=== PATIENT | female | born 1975 | race Caucasian/White ===

== ENCOUNTER 2016-08-27 00:44 | Emergency (ER) | payer OTHER ==
--- NOTE | 2016-08-27 03:10 | ED ORDER SUMMARY ---
..... Patient: SAMUEL AREVALO OrderSheet [facility] VisitID: [id number] [place] [address] 40y, F Registration Date/Time: 08/27/2016 ORDER SHEET Weight: 52.1 kg Allergies: No Known Drug Allergy GENERAL ORDERS: MEDICATION ORDERS: Augmentin PO 875 mg (NOW) (03:09 08/27/2016 Sandi OSPINA) (3:17 TBowfrancois R.N.) Oxycodone-APAP PO 5/325 mg (NOW) (03:09 08/27/2016 Sandi OSPINA) (3:17 TBowfrancois R.N.) IV FLUIDS: ORDER SHEET NOTES: [Electronically signed by Janis Llanos R.N. (03:19 08/27/2016)] [Electronically signed by Braulio Hou MD (14:55 09/03/2016)] [Electronically locked/signed by Janis Llanos R.N. (03:19 08/27/2016)]
--- NOTE | 2016-08-27 03:10 | ED CLINICAL REPORT ---
Clinical Report - Physicians/Mid Levels [facility] [address] [place] [address] 08/27/2016 0:47 Patient: SAMUEL AREVALO Time Seen: 03:02 Aug 27 2016. Arrived- By private vehicle. Historian- patient. CPT: ER phys charges level 3 (#[id number]). HISTORY OF PRESENT ILLNESS Chief Complaint: EARACHE. Is still present. Onset during light activity. Modifying factors. Not worsened by anything. Not relieved by anything. Location- left ear. The pain is described as severe. The patient has had moderate left ear pain. She has had ear drainage and hearing loss. No nasal discharge, sinus pressure, complaint of foreign body in the ear, ear trauma or recent barotrauma. No tinnitus. Similar symptoms previously: As bad. Diagnosis: otitis externa. Recent medical care: Not recently seen/assessed. REVIEW OF SYSTEMS No fever, chills, cough, difficulty breathing or chest pain. No eye discomfort, nausea, vomiting, diarrhea or abdominal pain. No skin rash or enlarged lymph nodes. All systems otherwise negative, except as recorded above. PAST HISTORY Otitis Externa. Diabetes Mellitus. - ADDITIONAL SURGERIES: Eye surg. --02:04 Gorge Schafer . Tonsillectomy. Medications: Insulin Regular Human Injection. Allergies: No Known Drug Allergy. SOCIAL HISTORY Heavy tobacco smoker (cigarette)- 1 pack per day. No alcohol use or drug use. ADDITIONAL NOTES The nursing notes have been reviewed. PHYSICAL EXAM Vital Signs: 08/27/2016 02:03 BP: 119/72. HR: 98. RR: 18. O2 saturation: 99%. Temp: 97.8 F. Pain level now: 5/10. Appearance: Alert. Appears to be in pain. Patient in moderate distress. Nose: Nose normal. Throat: Pharynx normal. Ear (right): There is pain with movement of the auricle, erythema of the external canal, swelling of the external canal and material in the external canal. The tympanic membrane is completely obscured by discharge. No lymphadenopathy. Right ear normal. Normal mastoid. Neck: Normal inspection. Neck supple. CVS: Normal heart rate and rhythm. Heart sounds normal. Respiratory: No respiratory distress. Breath sounds normal. Skin: Skin warm. Normal skin color. No rash. Neuro: Oriented X 3. No motor deficit. PROGRESS AND PROCEDURES Course of Care: percocet 1 po Augmentin 875 mg po Patient is stable. Symptoms better. Patient/family counseled. Disposition: Discharged. Condition: stable. CLINICAL IMPRESSION Acute and recurrent suppurative left otitis media. No perforation of left tympanic membrane. Acute localized left otitis externa. Topical preparation prescribed. Systemic antibiotics prescribed due to coexisting disease and OM. Drainage present. INSTRUCTIONS Do not allow water in ear. Drink plenty of fluids. Warnings: Further evaluation is necessary. GENERAL WARNINGS: Return or contact your physician immediately if your condition worsens or changes unexpectedly, if not improving as expected, or if other problems arise. Your Current Medications: CONTINUE TAKING THE FOLLOWING MEDICATIONS: Insulin Regular Human Injection. Prescription Medications: Augmentin 875 mg: take 1 tablet orally every 12 hours for 7 days. Dispense fourteen (14). No refills. Substitution is permissible. Oxycodone/APAP 5 mg/325 mg: take 1-2 tablets orally every 4 hours as needed for pain. Dispense twenty (20). No refill. Cipro HC otic solution: instill 3 drops into affected ear every 12 hours for 7 days. Dispense one (1) bottle. No refills. Substitution is permissible. Follow-up: Follow up with your doctor in two days. Call for an appointment. Understanding of the discharge instructions verbalized by patient. Discharge instructions reviewed with and understanding was verbalized by industrial relations director. (Electronically signed by Braulio Hou MD 09/03/2016 14:55) Addenda for SAMUEL AREVALO VisitID: [id number] Date: 08/27/2016 08/27/2016 14:08 Patients mother called wanting to change ear drop abx Cipro to another due to cost. Let provider know, provider does not feel safe changing prescription due to the original provider that saw patient did not finish patient documentation and it is unknown what he saw during patient ear assessment. Called patients mother back and informed her to follow up with PCP or to get RX filled. (Electronically signed by Fransisco Bridges R.N. - 08/27/2016 14:08)
--- NOTE | 2016-08-27 03:10 | ED NURSING NOTES ---
Clinical Report - Nurses [facility] [address] [place] [address] 08/27/2016 0:47 [id number] Triage time 02:03. Acuity: LEVEL 4. Chief Complaint: LEFT EAR PAIN. --02:06 Jolene Schafer. 02:03 08/27/16. BP: 119/72. HR: 98. RR: 18. O2 saturation: 99%. Temp: 97.8 F. Pain level now: 09/11. --02:06 Jolene Schafer. Weight: 52.1 kg. Height/Length: 63 inches. BMI: 20.4. --02:06 Jolene Schafer. Medications Insulin Regular Human Injection. --02:04 Gorge Schafer Allergies No Known Drug Allergy. --02:03 Gorge Schafer History Arrived by private vehicle. Historian: patient. Accompanied by family. This started yesterday. She has had a sore throat and a headache. 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 PAST MEDICAL HX: Immunizations: up-to-date. Last normal menstrual period- 1 months ago. SOCIAL HX: Heavy tobacco smoker- less than 1 pack per day. No alcohol use or drug use. No infectious disease exposure. SELF HARM ASSESSMENT: A self harm assessment was performed. The patient answered "no" to the question "Have you recently felt down, depressed, or hopeless?", "Have you noticed less interest or pleasure in doing things?", "Do you have thoughts of harming or killing yourself?", "Are you here because you tried to hurt yourself?", "Have you ever tried to hurt yourself before today?", "Have you recently had thoughts about harming or killing others?" and "Do you have any dangerous items in your possession?". FALL RISK ASSESSMENT: Fall risk assessment completed. No fall risk identified. NUTRITIONAL RISK ASSESSMENT: The nutritional risk assessment revealed no deficiencies. FUNCTIONAL ASSESSMENT: Functional assessment: no impairments noted. LEARNING NEEDS ASSESSMENT: The learning needs assessment revealed no barriers. ABUSE ASSESSMENT: Abuse assessment: The patient was asked "Do you feel safe in your home?". SKIN INTEGRITY ASSESSMENT: Skin integrity risk assessment completed. No skin integrity risk identified. --02:06 Gorge Schafer PROBLEMS: Otitis Externa. Diabetes Mellitus. --02:04 Gorge Schafer ADDITIONAL SURGERIES: Eye surg. --02:04 Gorge Schafer . Tonsillectomy. --02:05 Gorge Schafer Interventions ID band on patient. To treatment room. --02:06 Gorge Schafer PHYSICAL ASSESSMENT Ambulatory to room. GENERAL / NEURO / PSYCH: Alert. Appears in no acute distress. Appears in pain. HEENT: No facial asymmetry noted. Pupils equal, round and reactive to light. EOM intact. Nares within normal limits. Pharynx within normal limits. RESPIRATORY: Respirations not labored. CVS: Capillary refill less than 2 seconds. SKIN: Skin is warm and dry. --02: Gorge Schafer NURSING PROGRESS NOTES Patient identifiers checked. Call light placed in reach. Side rails up x 1. Bed placed in lowest position. Brakes of bed on. --02:07 Gorge Schafer 03:17 08/27/2016 Augmentin (Amoxicillin-Pot Clavulanate) PO 875 mg given. Allergies verified and confirmed 5 rights. --03:17 Gorge Schafer 03:17 08/27/2016 Oxycodone-APAP (Oxycodone-Acetaminophen) PO 5/325 mg Tablets 1 tab given. Allergies verified, confirmed 5 rights and sedative warning given to the patient and patient's family. --03:17 Gorge Schafer DISPOSITION / DISCHARGE Departure time: 03:18. Condition at departure: improved. No learning barriers present. Discharge instructions provided and reviewed with the patient. Reviewed warnings (no water in ear). Reviewed medication(s) side effects, precautions, dosing and course information. Prescription(s) given to the patient. Patient verbalized understanding. Written instructions provided in Italian. No treatment instructions, referrals given to the patient, diet instructions, activity restrictions or note given. No follow up contact number given or stop smoking instructions. The patient was discharged by the physician. She was discharged home and accompanied by spouse. She left the Emergency Department ambulatory and via private vehicle. Spouse driving. FALL RISK ASSESSMENT: Fall risk assessment completed. No fall risk identified. --03:18 Gorge Schafer 03:17 08/27/16. BP: deferred. HR: deferred. RR: deferred. O2 saturation: deferred. Temp: deferred. Pain level now deferred. --03:18 Gorge Schafer Locked/Released at 08/27/2016 3:19 by Gorge Schafer
--- NOTE | 2016-08-27 03:10 | ED CLINICAL REPORT ---
Clinical Report - Physicians/Mid Levels [facility] [address] [place] [address] 08/27/2016 0:47 Patient: SAMUEL AREVALO Time Seen: 03:02 Aug 27 2016. Arrived- By private vehicle. Historian- patient. CPT: ER phys charges level 3 (#[id number]). HISTORY OF PRESENT ILLNESS Chief Complaint: EARACHE. Is still present. Onset during light activity. Modifying factors. Not worsened by anything. Not relieved by anything. Location- left ear. The pain is described as severe. The patient has had moderate left ear pain. She has had ear drainage and hearing loss. No nasal discharge, sinus pressure, complaint of foreign body in the ear, ear trauma or recent barotrauma. No tinnitus. Similar symptoms previously: As bad. Diagnosis: otitis externa. Recent medical care: Not recently seen/assessed. REVIEW OF SYSTEMS No fever, chills, cough, difficulty breathing or chest pain. No eye discomfort, nausea, vomiting, diarrhea or abdominal pain. No skin rash or enlarged lymph nodes. All systems otherwise negative, except as recorded above. PAST HISTORY Otitis Externa. Diabetes Mellitus. - ADDITIONAL SURGERIES: Eye surg. --02:04 Gorge Schafer . Tonsillectomy. Medications: Insulin Regular Human Injection. Allergies: No Known Drug Allergy. SOCIAL HISTORY Heavy tobacco smoker (cigarette)- 1 pack per day. No alcohol use or drug use. ADDITIONAL NOTES The nursing notes have been reviewed. PHYSICAL EXAM Vital Signs: 08/27/2016 02:03 BP: 119/72. HR: 98. RR: 18. O2 saturation: 99%. Temp: 97.8 F. Pain level now: 5/10. Appearance: Alert. Appears to be in pain. Patient in moderate distress. Nose: Nose normal. Throat: Pharynx normal. Ear (right): There is pain with movement of the auricle, erythema of the external canal, swelling of the external canal and material in the external canal. The tympanic membrane is completely obscured by discharge. No lymphadenopathy. Right ear normal. Normal mastoid. Neck: Normal inspection. Neck supple. CVS: Normal heart rate and rhythm. Heart sounds normal. Respiratory: No respiratory distress. Breath sounds normal. Skin: Skin warm. Normal skin color. No rash. Neuro: Oriented X 3. No motor deficit. PROGRESS AND PROCEDURES Course of Care: percocet 1 po Augmentin 875 mg po Patient is stable. Symptoms better. Patient/family counseled. Disposition: Discharged. Condition: stable. CLINICAL IMPRESSION Acute and recurrent suppurative left otitis media. No perforation of left tympanic membrane. Acute localized left otitis externa. Topical preparation prescribed. Systemic antibiotics prescribed due to coexisting disease and OM. Drainage present. INSTRUCTIONS Do not allow water in ear. Drink plenty of fluids. Warnings: Further evaluation is necessary. GENERAL WARNINGS: Return or contact your physician immediately if your condition worsens or changes unexpectedly, if not improving as expected, or if other problems arise. Your Current Medications: CONTINUE TAKING THE FOLLOWING MEDICATIONS: Insulin Regular Human Injection. Prescription Medications: Augmentin 875 mg: take 1 tablet orally every 12 hours for 7 days. Dispense fourteen (14). No refills. Substitution is permissible. Oxycodone/APAP 5 mg/325 mg: take 1-2 tablets orally every 4 hours as needed for pain. Dispense twenty (20). No refill. Cipro HC otic solution: instill 3 drops into affected ear every 12 hours for 7 days. Dispense one (1) bottle. No refills. Substitution is permissible. Follow-up: Follow up with your doctor in two days. Call for an appointment. Understanding of the discharge instructions verbalized by patient. Discharge instructions reviewed with and understanding was verbalized by administration assistant. (Electronically signed by Braulio Hou MD 09/03/2016 14:55) Addenda for SAMUEL AREVALO VisitID: [id number] Date: 08/27/2016 08/27/2016 14:08 Patients mother called wanting to change ear drop abx Cipro to another due to cost. Let provider know, provider does not feel safe changing prescription due to the original provider that saw patient did not finish patient documentation and it is unknown what he saw during patient ear assessment. Called patients mother back and informed her to follow up with PCP or to get RX filled. (Electronically signed by Fransisco Bridges R.N. - 08/27/2016 14:08)
--- NOTE | 2016-08-27 03:10 | ED NURSING NOTES ---
Clinical Report - Nurses [facility] [address] [place] [address] 08/27/2016 0:47 [id number] Triage time 02:03. Acuity: LEVEL 4. Chief Complaint: LEFT EAR PAIN. --02:06 Jolene Schafer. 02:03 08/27/16. BP: 119/72. HR: 98. RR: 18. O2 saturation: 99%. Temp: 97.8 F. Pain level now: 09/11. --02:06 Jolene Schafer. Weight: 52.1 kg. Height/Length: 63 inches. BMI: 20.4. --02:06 Jolene Schafer. Medications Insulin Regular Human Injection. --02:04 Gorge Schafer Allergies No Known Drug Allergy. --02:03 Gorge Schafer History Arrived by private vehicle. Historian: patient. Accompanied by family. This started yesterday. She has had a sore throat and a headache. 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 PAST MEDICAL HX: Immunizations: up-to-date. Last normal menstrual period- 1 months ago. SOCIAL HX: Heavy tobacco smoker- less than 1 pack per day. No alcohol use or drug use. No infectious disease exposure. SELF HARM ASSESSMENT: A self harm assessment was performed. The patient answered "no" to the question "Have you recently felt down, depressed, or hopeless?", "Have you noticed less interest or pleasure in doing things?", "Do you have thoughts of harming or killing yourself?", "Are you here because you tried to hurt yourself?", "Have you ever tried to hurt yourself before today?", "Have you recently had thoughts about harming or killing others?" and "Do you have any dangerous items in your possession?". FALL RISK ASSESSMENT: Fall risk assessment completed. No fall risk identified. NUTRITIONAL RISK ASSESSMENT: The nutritional risk assessment revealed no deficiencies. FUNCTIONAL ASSESSMENT: Functional assessment: no impairments noted. LEARNING NEEDS ASSESSMENT: The learning needs assessment revealed no barriers. ABUSE ASSESSMENT: Abuse assessment: The patient was asked "Do you feel safe in your home?". SKIN INTEGRITY ASSESSMENT: Skin integrity risk assessment completed. No skin integrity risk identified. --02:06 Gorge Schafer PROBLEMS: Otitis Externa. Diabetes Mellitus. --02:04 Gorge Schafer ADDITIONAL SURGERIES: Eye surg. --02:04 Gorge Schafer . Tonsillectomy. --02:05 Gorge Schafer Interventions ID band on patient. To treatment room. --02:06 Gorge Schafer PHYSICAL ASSESSMENT Ambulatory to room. GENERAL / NEURO / PSYCH: Alert. Appears in no acute distress. Appears in pain. HEENT: No facial asymmetry noted. Pupils equal, round and reactive to light. EOM intact. Nares within normal limits. Pharynx within normal limits. RESPIRATORY: Respirations not labored. CVS: Capillary refill less than 2 seconds. SKIN: Skin is warm and dry. --02: Gorge Schafer NURSING PROGRESS NOTES Patient identifiers checked. Call light placed in reach. Side rails up x 1. Bed placed in lowest position. Brakes of bed on. --02:07 Gorge Schafer 03:17 08/27/2016 Augmentin (Amoxicillin-Pot Clavulanate) PO 875 mg given. Allergies verified and confirmed 5 rights. --03:17 Gorge Schafer 03:17 08/27/2016 Oxycodone-APAP (Oxycodone-Acetaminophen) PO 5/325 mg Tablets 1 tab given. Allergies verified, confirmed 5 rights and sedative warning given to the patient and patient's family. --03:17 Gorge Schafer DISPOSITION / DISCHARGE Departure time: 03:18. Condition at departure: improved. No learning barriers present. Discharge instructions provided and reviewed with the patient. Reviewed warnings (no water in ear). Reviewed medication(s) side effects, precautions, dosing and course information. Prescription(s) given to the patient. Patient verbalized understanding. Written instructions provided in Mongolian. No treatment instructions, referrals given to the patient, diet instructions, activity restrictions or note given. No follow up contact number given or stop smoking instructions. The patient was discharged by the physician. She was discharged home and accompanied by spouse. She left the Emergency Department ambulatory and via private vehicle. Spouse driving. FALL RISK ASSESSMENT: Fall risk assessment completed. No fall risk identified. --03:18 Gorge Schafer 03:17 08/27/16. BP: deferred. HR: deferred. RR: deferred. O2 saturation: deferred. Temp: deferred. Pain level now deferred. --03:18 Gorge Schafer Locked/Released at 08/27/2016 3:19 by Gorge Schafer
--- NOTE | 2016-08-27 03:10 | ED ORDER SUMMARY ---
..... Patient: SAMUEL AREVALO OrderSheet [facility] VisitID: [id number] [place] [address] 40y, F Registration Date/Time: 08/27/2016 ORDER SHEET Weight: 52.1 kg Allergies: No Known Drug Allergy GENERAL ORDERS: MEDICATION ORDERS: Augmentin PO 875 mg (NOW) (03:09 08/27/2016 Sandi OSPINA) (3:17 TBowfrancois R.N.) Oxycodone-APAP PO 5/325 mg (NOW) (03:09 08/27/2016 Sandi OSPINA) (3:17 TBowfrancois R.N.) IV FLUIDS: ORDER SHEET NOTES: [Electronically signed by Janis Llanos R.N. (03:19 08/27/2016)] [Electronically signed by Braulio Hou MD (14:55 09/03/2016)] [Electronically locked/signed by Janis Llanos R.N. (03:19 08/27/2016)]
--- NOTE | 2016-09-03 14:56 | ED MED RECONCILIATION SUMMARY ---
Patient: SAMUEL AREVALO Medication Reconciliation Report [facility] VisitID: [id number] [address] [place] [address] 40y, F Registration Date/Time: 08/27/2016 Weight: 52.1 kg Height/Length: 63 in. BMI: 20.4 ALLERGIES: No Known Drug Allergy The patient's Home Medications are listed below: CONTINUE TAKING THE FOLLOWING MEDICATIONS: Insulin Regular Human Injection The source(s) of the original Home Medication information: Not obtained. The following Medications were given to the patient in the Emergency Department: Augmentin [PO] PO 875 mg, administered: 08/27/2016 3:17:00 AM Oxycodone-APAP [PO] PO 1 tab, administered: 08/27/2016 3:17:00 AM The following Medications were prescribed to the patient: Augmentin 875 mg: take 1 tablet orally every 12 hours for 7 days. Dispense fourteen (14). No refills. Substitution is permissible. -- Braulio Hou MD Oxycodone/APAP 5 mg/325 mg: take 1-2 tablets orally every 4 hours as needed for pain. Dispense twenty (20). No refill. -- Braulio Hou MD Cipro HC otic solution: instill 3 drops into affected ear every 12 hours for 7 days. Dispense one (1) bottle. No refills. Substitution is permissible. -- Braulio Hou MD
--- NOTE | 2016-09-03 14:56 | ED MED RECONCILIATION SUMMARY ---
Patient: SAMUEL AREVALO Medication Reconciliation Report [facility] VisitID: [id number] [address] [place] [address] 40y, F Registration Date/Time: 08/27/2016 Weight: 52.1 kg Height/Length: 63 in. BMI: 20.4 ALLERGIES: No Known Drug Allergy The patient's Home Medications are listed below: CONTINUE TAKING THE FOLLOWING MEDICATIONS: Insulin Regular Human Injection The source(s) of the original Home Medication information: Not obtained. The following Medications were given to the patient in the Emergency Department: Augmentin [PO] PO 875 mg, administered: 08/27/2016 3:17:00 AM Oxycodone-APAP [PO] PO 1 tab, administered: 08/27/2016 3:17:00 AM The following Medications were prescribed to the patient: Augmentin 875 mg: take 1 tablet orally every 12 hours for 7 days. Dispense fourteen (14). No refills. Substitution is permissible. -- Braulio Hou MD Oxycodone/APAP 5 mg/325 mg: take 1-2 tablets orally every 4 hours as needed for pain. Dispense twenty (20). No refill. -- Braulio Hou MD Cipro HC otic solution: instill 3 drops into affected ear every 12 hours for 7 days. Dispense one (1) bottle. No refills. Substitution is permissible. -- Braulio Hou MD
--- NOTE | 2016-09-03 14:56 | ED MAR SUMMARY ---
..... Medication Administration Record [facility] [address] [place] [address] Patient: SAMUEL AREVALO Visit ID: [id number] 40y, F Weight: 52.1 kg Height/Length: 63 in BMI: 20.4 ALLERGIES: No Known Drug Allergy Given 03:08/27/2016 Hanh, R.N. Medication Administered: AUGMENTIN [PO] (AMOXICILLIN-POT CLAVULANATE), Dose: 875 mg PO. Medication Ordered: Augmentin PO 875 mg (NOW). Given 03:08/27/2016 Hanh, R.N. Medication Administered: OXYCODONE-APAP [PO] (OXYCODONE-ACETAMINOPHEN), Dose: 1 tab 5/325 mg Tablets PO. Medication Ordered: Oxycodone-APAP PO 5/325 mg (NOW).
--- NOTE | 2016-09-03 14:56 | ED DISCHARGE INSTRUCTIONS ---
Patient: SAMUEL AREVALO General Instructions [facility] VisitID: [id number] [place] [address] 40y, F Registration Date/Time: 08/27/2016 Acute and recurrent suppurative left otitis media. No perforation of left tympanic membrane. Acute localized left otitis externa. Topical preparation prescribed. Systemic antibiotics prescribed due to coexisting disease and OM. Drainage present. INSTRUCTIONS Do not allow water in ear. Drink plenty of fluids. Warnings: Further evaluation is necessary. GENERAL WARNINGS: Return or contact your physician immediately if your condition worsens or changes unexpectedly, if not improving as expected, or if other problems arise. Your Current Medications: CONTINUE TAKING THE FOLLOWING MEDICATIONS: Insulin Regular Human Injection. Prescription Medications: Augmentin 875 mg: take 1 tablet orally every 12 hours for 7 days. Dispense fourteen (14). No refills. Substitution is permissible. Oxycodone/APAP 5 mg/325 mg: take 1-2 tablets orally every 4 hours as needed for pain. Dispense twenty (20). No refill. Cipro HC otic solution: instill 3 drops into affected ear every 12 hours for 7 days. Dispense one (1) bottle. No refills. Substitution is permissible. Follow-up: Follow up with your doctor in two days. Call for an appointment. Understanding of the discharge instructions verbalized by patient. Discharge instructions reviewed with and understanding was verbalized by devulcanizer charger. ADDITIONAL INFORMATION Middle Ear Infection (Adult) You have an infection of the middle ear (the space behind the eardrum). It can occur as a result of the common cold. This is because congestion can block the internal passage (eustachian tube) that drains fluid from the middle ear. When the middle ear fills with fluid, bacteria can grow there and cause an infection. Oral antibiotics are used to treat this illness, not ear drops. Symptoms usually start to improve within 1-2 days of treatment. Home Care: Finish all of the antibiotic medicine prescribed, even though you may feel better after the first few days. You may use acetaminophen (Tylenol) or ibuprofen (Motrin, Advil) to control pain, unless something else was prescribed. [NOTE: If you have chronic liver or kidney disease or have ever had a stomach ulcer or GI bleeding, talk with your doctor before using these medicines.] (Do not give aspirin to anyone under 18 years of age who is ill with a fever. It may cause severe liver damage.) Follow Up with your doctor or this facility in two weeks if all symptoms have not cleared, or if hearing does not return to normal within one month. Get Prompt Medical Attention if any of the following occur: Ear pain gets worse or does not improve after three days of treatment Unusual drowsiness or confusion Neck pain, stiff neck or headache Fluid or blood draining from the ear canal Fever of 100.4F (38C) or higher after 3 days of antibiotics, or as directed by your healthcare provider Convulsion (seizure) External Ear Infection [Adult] This is an infection in the ear canal due to an overgrowth of bacteria or fungus. This often occurs a few days after water gets trapped in the ear canal (swimming or bathing). It may also occur after cleaning too deeply in the ear canal with a cotton swab or other object. Sometimes hair care products get into the ear canal and cause this problem. There may be itching, redness, drainage, or swelling of the ear canal and temporary loss of hearing. Home Care: Do not try to clean the ear canal. That could push pus and bacteria deeper into the canal. Use the drops prescribed to reduce swelling and fight the infection. If an EAR WICK was placed in the ear canal, apply drops right onto the end of the wick. The wick will draw the medicine into the ear canal even if it is swollen closed. Do not allow water to get into your ear when bathing. No swimming during this time. A cotton ball may be loosely placed in the outer ear to absorb any drainage. You may use acetaminophen (Tylenol) or ibuprofen (Motrin, Advil) to control pain, unless another medicine was prescribed. [NOTE: If you have chronic liver or kidney disease or ever had a stomach ulcer or GI bleeding, talk with your doctor before using these medicines.] Preventing Future Infections: You can usually avoid this problem by using an eardrop that removes the water from your ear canal when you feel there is water trapped there. You can get these drops over the counter (Swim Ear, Aqua Ear and other brands). Follow Up with your doctor or this facility in one week or as instructed by our staff. Get Prompt Medical Attention if any of the following occur: Ear pain becomes worse or does not begin to improve after 3 days of treatment Redness or swelling of the outer ear occurs or gets worse Headache, painful or stiff neck, Feeling drowsy or confused Fever of 100.4F (38C) or higher, or as directed by your healthcare provider Seizure Oxycodone Hydrochloride, Acetaminophen Oral tablet What is this medicine? ACETAMINOPHEN; OXYCODONE (a set a RAYMOND sagra fen; ox i KOE done) is a pain reliever. It is used to treat mild to moderate pain. How should I use this medicine? Take this medicine by mouth with a full glass of water. Follow the directions on the prescription label. Take your medicine at regular intervals. Do not take your medicine more often than directed. Talk to your chief cook regarding the use of this medicine in children. Special care may be needed. Patients over 65 years old may have a stronger reaction and need a smaller dose. What side effects may I notice from receiving this medicine? Side effects that you should report to your doctor or health critical care technician as soon as possible: allergic reactions like skin rash, itching or hives, swelling of the face, lips, or tongue breathing difficulties, wheezing confusion light headedness or fainting spells severe stomach pain yellowing of the skin or the whites of the eyes Side effects that usually do not require medical attention (report to your doctor or health critical care technician if they continue or are bothersome): dizziness drowsiness nausea vomiting What may interact with this medicine? alcohol antihistamines barbiturates like amobarbital, butalbital, butabarbital, methohexital, pentobarbital, phenobarbital, thiopental, and secobarbital benztropine drugs for bladder problems like solifenacin, trospium, oxybutynin, tolterodine, hyoscyamine, and methscopolamine drugs for breathing problems like ipratropium and tiotropium drugs for certain stomach or intestine problems like propantheline, homatropine methylbromide, glycopyrrolate, atropine, belladonna, and dicyclomine general anesthetics like etomidate, ketamine, nitrous oxide, propofol, desflurane, enflurane, halothane, isoflurane, and sevoflurane medicines for depression, anxiety, or psychotic disturbances medicines for sleep muscle relaxants naltrexone narcotic medicines (opiates) for pain phenothiazines like perphenazine, thioridazine, chlorpromazine, mesoridazine, fluphenazine, prochlorperazine, promazine, and trifluoperazine scopolamine tramadol trihexyphenidyl What if I miss a dose? If you miss a dose, take it as soon as you can. If it is almost time for your next dose, take only that dose. Do not take double or extra doses. Where should I keep my medicine? Keep out of the reach of children. This medicine can be abused. Keep your medicine in a safe place to protect it from theft. Do not share this medicine with anyone. Selling or giving away this medicine is dangerous and against the law. Store at room temperature between 20 and 25 degrees C (68 and 77 degrees F). Keep container tightly closed. Protect from light. This medicine may cause accidental overdose and if it is taken by other adults, children, or pets. Flush any unused medicine down the toilet to reduce the chance of harm. Do not use the medicine after the expiration date. What should I tell my health care provider before I take this medicine? They need to know if you have any of these conditions: brain tumor Crohn's disease, inflammatory bowel disease, or ulcerative colitis drink more than 3 alcohol containing drinks per day drug abuse or addiction head injury heart or circulation problems kidney disease or problems going to the bathroom liver disease lung disease, asthma, or breathing problems an unusual or allergic reaction to acetaminophen, oxycodone, other opioid analgesics, other medicines, foods, dyes, or preservatives or trying to get breast-feeding What should I watch for while using this medicine? Tell your doctor or health critical care technician if your pain does not go away, if it gets worse, or if you have new or a different type of pain. You may develop tolerance to the medicine. Tolerance means that you will need a higher dose of the medication for pain relief. Tolerance is normal and is expected if you take this medicine for a long time. Do not suddenly stop taking your medicine because you may develop a severe reaction. Your body becomes used to the medicine. This does NOT mean you are addicted. Addiction is a behavior related to getting and using a drug for a non-medical reason. If you have pain, you have a medical reason to take pain medicine. Your doctor will tell you how much medicine to take. If your doctor wants you to stop the medicine, the dose will be slowly lowered over time to avoid any side effects. You may get drowsy or dizzy. Do not drive, use machinery, or do anything that needs mental alertness until you know how this medicine affects you. Do not stand or sit up quickly, especially if you are an older patient. This reduces the risk of dizzy or fainting spells. Alcohol may interfere with the effect of this medicine. Avoid alcoholic drinks. There are different types of narcotic medicines (opiates) for pain. If you take more than one type at the same time, you may have more side effects. Give your health care provider a list of all medicines you use. Your doctor will tell you how much medicine to take. Do not take more medicine than directed. Call emergency for help if you have problems breathing. The medicine will cause constipation. Try to have a bowel movement at least every 2 to 3 days. If you do not have a bowel movement for 3 days, call your doctor or health critical care technician. Do not take Tylenol (acetaminophen) or medicines that have acetaminophen with this medicine. Too much acetaminophen can be very dangerous. Many nonprescription medicines contain acetaminophen. Always read the labels carefully to avoid taking more acetaminophen. You have been given the following additional information: Otitis Media, Abx Tx (Adult) External Ear Infection (Adult) Oxycodone Hydrochloride, Acetaminophen Oral tablet Do not allow water in ear. (Electronically signed by Braulio Hou MD 09/03/2016 14:55)
--- NOTE | 2016-09-03 14:56 | ED MAR SUMMARY ---
..... Medication Administration Record [facility] [address] [place] [address] Patient: SAMUEL AREVALO Visit ID: [id number] 40y, F Weight: 52.1 kg Height/Length: 63 in BMI: 20.4 ALLERGIES: No Known Drug Allergy Given 03:08/27/2016 Hanh, R.N. Medication Administered: AUGMENTIN [PO] (AMOXICILLIN-POT CLAVULANATE), Dose: 875 mg PO. Medication Ordered: Augmentin PO 875 mg (NOW). Given 03:08/27/2016 Hanh, R.N. Medication Administered: OXYCODONE-APAP [PO] (OXYCODONE-ACETAMINOPHEN), Dose: 1 tab 5/325 mg Tablets PO. Medication Ordered: Oxycodone-APAP PO 5/325 mg (NOW).
== END 2016-08-27 03:15 | disposition home or self-care (01) ==
LOC: ED SRH 00:44 → TRANS SRH 13:41
DX: H66.015 Acute suppurative otitis media with spontaneous rupture of ear drum, recurrent, left ear (principal); H60.92 Unspecified otitis externa, left ear; F17.210 Nicotine dependence, cigarettes, uncomplicated; E11.9 Type 2 diabetes mellitus without complications